=== PATIENT | male | born 1975 | race Caucasian/White ===

== ENCOUNTER 2017-01-28 10:19 | Emergency (ER) | payer OTHER ==
[2017-01-28 10:33] VITALS: BP 130/90; O2SAT 98
--- NOTE | 2017-01-28 10:59 | C.PDOC ---
History Of Present Illness 42 y/o male presents to the ED with complains of sore throat, body aches, headache and subjective fever x3 days. Pt denies SOB, cough, vomiting, diarrhea , chest pain or any other complaints. Time Seen by Provider: 01/28/17 10:37 Chief Complaint (Nursing): ENT Problem History Per: Patient History/Exam Limitations: None Onset/Duration Of Symptoms: Days Current Symptoms Are (Timing): Still Present Symptoms Have Been: Continuous Severity: Mild Anticoagulant/Antiplatlet Use?: No Past Medical History Reviewed: Historical Data, Nursing Documentation, Vital Signs Vital Signs: Last Vital Signs Temp 98.2 F 01/28/17 10:54 Pulse 75 01/28/17 10:54 Resp 18 01/28/17 10:54 BP 130/90 01/28/17 10:30 Pulse Ox 98 01/28/17 10:59 Family History: States: Unknown Family Hx - Social History Hx Tobacco Use: Yes Hx Alcohol Use: Yes Hx Substance Use: No - Immunization History Hx Tetanus Toxoid Vaccination: No Hx Influenza Vaccination: No Hx Pneumococcal Vaccination: No Review Of Systems Except As Marked, All Systems Reviewed And Found Negative. Constitutional: Positive for: Fever, Other (body aches) ENT: Positive for: Throat Pain Cardiovascular: Negative for: Chest Pain Respiratory: Negative for: Cough, Shortness of Breath Gastrointestinal: Negative for: Vomiting, Diarrhea Neurological: Positive for: Headache Physical Exam - Physical Exam Appears: Non-toxic, No Acute Distress Skin: Warm, Dry, No Rash Head: Atraumatic, Normacephalic Ear(s): Bilateral: Normal Nose: Normal Oral Mucosa: Moist Throat: Erythema, No Exudate, Other (uvula midline) Neck: Normal ROM, Supple Chest: Symmetrical Cardiovascular: Rhythm Regular, No Murmur Respiratory: Normal Breath Sounds, No Rales, No Rhonchi, No Wheezing Gastrointestinal/Abdominal: Soft, No Tenderness Extremity: Normal ROM Extremity: Bilateral: Atraumatic Neurological/Psych: Oriented x3, Normal Speech ED Course And Treatment O2 Sat by Pulse Oximetry: 98 (room air) Pulse Ox Interpretation: Normal Progress Note: Plan: amoxicillin, ibuprofen. Discharge pt home, instructed to return if worsening symptoms. Disposition - Disposition Referrals: Sancho Gotti MD [Medical Doctor] - Disposition: HOME/ ROUTINE Disposition Time: 10:56 Condition: STABLE Additional Instructions: Follow up with PMD within 1-2 days. Return to ED if feel worse. Prescriptions: Amoxicillin [Amoxil 500 mg Cap] 500 mg PO Q8 #30 cap Fluticasone Nasal [Flonase] 1 spr NS BID #1 spr Ibuprofen [Motrin Tab] 600 mg PO Q8 #30 tab Instructions: Pharyngitis (ED) Forms: Work Excuse - Clinical Impression Clinical Impression: Pharyngitis - PA / CLERICAL CLERK / Resident Statement MD/DO has reviewed & agrees with the documentation as recorded. - Scribe Statement The provider has reviewed the documentation as recorded by the Scribdylan Brooks All medical record entries made by the Maircruz were at my direction and personally dictated by me. I have reviewed the chart and agree that the record accurately reflects my personal performance of the history, physical exam, medical decision making, and the department course for this patient. I have also personally directed, reviewed, and agree with the discharge instructions and disposition.
[2017-01-28 11:01] VITALS: PULSE 75; RESP 18; TEMP 98.2
== END 2017-01-28 11:04 | disposition home or self-care (01) ==
LOC: C.ER 10:19
DX: J02.9 Acute pharyngitis, unspecified (principal); Z72.0 Tobacco use

== ENCOUNTER 2017-07-30 09:23 | Emergency (ER) | payer OTHER ==
[2017-07-30 09:36] VITALS: BMI 20.7
[2017-07-30 09:45] VITALS: TEMP 100.3
[2017-07-30] MEDS ORDERED: Amoxicillin-Clav 875-125 mg Tab PO STA (09:56)
--- NOTE | 2017-07-30 09:59 | C.PDOC ---
History Of Present Illness 42 y/o male c/o throat pain, fevers, chills since last night. Pt reports history of tonsilitis in Jan, 2017. Denies headache, chest pain, SOB, nausea, vomiting, diarrhea, or other associated symptoms. Time Seen by Provider: 07/30/17 09:51 Chief Complaint (Nursing): Flu-like Symptoms History Per: Patient History/Exam Limitations: None Onset/Duration Of Symptoms: Days Current Symptoms Are (Timing): Still Present Quality (Mouth/Throat): Tenderness Past Medical History Reviewed: Historical Data, Nursing Documentation, Vital Signs Vital Signs: Last Vital Signs Temp 100.3 F H 07/30/17 09:43 Pulse 72 07/30/17 10:37 Resp 18 07/30/17 10:37 BP 124/75 07/30/17 10:37 Pulse Ox 100 07/30/17 10:39 Family History: States: Unknown Family Hx - Social History Hx Tobacco Use: Yes Hx Alcohol Use: Yes Hx Substance Use: No - Immunization History Hx Tetanus Toxoid Vaccination: No Hx Influenza Vaccination: No Hx Pneumococcal Vaccination: No Review Of Systems Except As Marked, All Systems Reviewed And Found Negative. Constitutional: Positive for: Fever, Chills ENT: Positive for: Throat Pain. Negative for: Ear Pain Cardiovascular: Negative for: Chest Pain Respiratory: Negative for: Cough, Shortness of Breath, Wheezing Gastrointestinal: Negative for: Nausea, Vomiting Skin: Negative for: Rash Neurological: Negative for: Headache, Dizziness Physical Exam - Physical Exam Appears: Non-toxic, No Acute Distress Skin: Normal Color, Warm, Dry Head: Atraumatic, Normacephalic Eye(s): bilateral: Normal Inspection, PERRL, EOMI Ear(s): Bilateral: Normal Nose: Normal Oral Mucosa: Moist Throat: Exudate, Other (enlarged tonsils, +exudative tonsilitis, uvula midline) Neck: Normal ROM, Supple Chest: Symmetrical Cardiovascular: Rhythm Regular Respiratory: Normal Breath Sounds, No Rales, No Rhonchi, No Stridor, No Wheezing Gastrointestinal/Abdominal: Soft, No Tenderness, No Guarding, No Rebound Back: Normal Inspection Extremity: Normal ROM, Capillary Refill (< 2 sec.) Neurological/Psych: Oriented x3, Normal Speech, Normal Cognition ED Course And Treatment O2 Sat by Pulse Oximetry: 100 (RA) Pulse Ox Interpretation: Normal Progress Note: Treated with amoxicillin, Motrin, Pepcid. Advised continuation of abx as directed. F/u with clinic/PMD. Medical Decision Making Medical Decision Making: recurrent exudative tonsillitis in obese male, last episode 02/13 Consider elective tonsillectomy after effective treatment of this tonsil infection. Disposition Doctor Will See Patient In The: Office Counseled Patient/Family Regarding: Studies Performed, Diagnosis - Disposition Referrals: Guillaume Canela MD [Staff Provider] - Sancho Gotti MD [Medical Doctor] - Disposition: HOME/ ROUTINE Disposition Time: 09:59 Condition: GOOD Additional Instructions: Augmentin 875 mg twice a day for 7 days. Motrin 600 mg every 6 hours as needed for pain/fever Pepcid 20 mg @ night to prevent stomach irritation from the Augmentin and Motrin Follow-up with Dr. Canela- ENT- to consider elective tonsillectomy for recurrent tonsillitis in adults- last episode 02/13 Throat Cultures sent. Prescriptions: Amoxicillin/Clavulanate [Augmentin 875 MG-125 MG] 1 tab PO BID #13 tab Famotidine [Pepcid] 20 mg PO HS #20 tab Ibuprofen [Motrin] 600 mg PO Q6H PRN #20 tab PRN Reason: Pain, Moderate (4-7) Instructions: Tonsillitis (ED) Forms: [facility] (Bhutanese) - Clinical Impression Clinical Impression: Exudative tonsillitis - Scribe Statement The provider has reviewed the documentation as recorded by the Scribe SM All medical record entries made by the Scribe were at my direction and personally dictated by me. I have reviewed the chart and agree that the record accurately reflects my personal performance of the history, physical exam, medical decision making, and the department course for this patient. I have also personally directed, reviewed, and agree with the discharge instructions and disposition.
[2017-07-30] MEDS ORDERED: Amoxicillin-Clav 875-125 mg Tab PO ONE (10:21)
[2017-07-30 10:37] VITALS: BP 124/75; PULSE 72; RESP 18
[2017-07-30 10:39] VITALS: O2SAT 100
== END 2017-07-30 10:38 | disposition home or self-care (01) ==
LOC: C.ER 09:23
DX: J03.90 Acute tonsillitis, unspecified (principal); Z87.891 Personal history of nicotine dependence

== ENCOUNTER 2018-08-18 11:15 | Emergency (ER) | payer OTHER ==
[2018-08-18 11:16] VITALS: BMI 20.7
[2018-08-18 11:35] VITALS: BP 143/92; PULSE 76; RESP 18; TEMP 98.2; O2SAT 99
--- NOTE | 2018-08-18 11:54 | C.PDOC ---
History Of Present Illness 43 y/o male c/o swelling and discomfort under left eye x 2 days with no injury or trauma. denies discharge from eye, denies change in vision. Time Seen by Provider: 08/18/18 11:43 Chief Complaint (Nursing): Eye Problem History Per: Patient History/Exam Limitations: no limitations Onset/Duration Of Symptoms: Days (2) Current Symptoms Are (Timing): Still Present Injury To Eye?: No Severity: Mild Quality: Other (irritation) Associated Symptoms: Swelling. denies: Pain (discomfort), Discharge From Eye Past Medical History Reviewed: Historical Data, Nursing Documentation, Vital Signs Vital Signs: Last Vital Signs Temp 98.2 F 08/18/18 11:32 Pulse 76 08/18/18 11:32 Resp 18 08/18/18 11:32 BP 143/92 H 08/18/18 11:32 Pulse Ox 99 08/18/18 11:32 Family History: States: Unknown Family Hx - Social History Hx Tobacco Use: Yes Hx Alcohol Use: Yes Hx Substance Use: No - Immunization History Hx Tetanus Toxoid Vaccination: No Hx Influenza Vaccination: No Hx Pneumococcal Vaccination: No Review Of Systems Constitutional: Negative for: Fever, Chills Eyes: Positive for: Eyelid Inflammation (lower left). Negative for: Pain (discomfrot), Vision Change, Conjunctivae Inflammation ENT: Negative for: Mouth Swelling, Throat Pain Physical Exam - Physical Exam Appears: Non-toxic, No Acute Distress Skin: Warm, Dry Head: Atraumatic, Normacephalic Eye(s): bilateral: PERRL, EOMI, right: Normal Inspection, left: Other (lower lid swollen with punctate area of pustulenoted in medial aspect of inner lower lid. ) Neurological/Psych: Oriented x3, Normal Speech ED Course And Treatment O2 Sat by Pulse Oximetry: 99 Disposition Counseled Patient/Family Regarding: Studies Performed, Diagnosis, Need For Followup, Rx Given - Disposition Referrals: Thony Shepherd MD [Staff Provider] - Disposition: HOME/ ROUTINE Disposition Time: 12:07 Condition: GOOD Additional Instructions: Please use antibiotic ointment as prescribed. Apply warm moist compresses to left under eyelid area several times a day. Follow up with Dr Shepherd (eye doctor) in a few days. Return to ER for any worse symptoms. Prescriptions: Erythromycin 0.5% [Erythromycin] 1 applic OS TID #1 tube Instructions: [place] Forms: [facility] (Maldivian), General Discharge Instructions - Clinical Impression Clinical Impression: Chalazion left lower eyelid
== END 2018-08-18 12:27 | disposition home or self-care (01) ==
LOC: C.ER 11:15
DX: H00.15 Chalazion left lower eyelid (principal)